=== PATIENT | female | born 1930 | race Caucasian/White ===

== ENCOUNTER 2016-12-04 14:48 | Inpatient (IN) | payer BC ==
[2016-12-04 15:04] VITALS: BMI 24.0
--- NOTE | 2016-12-04 15:23 | PDOC ---
History of Present Illness <Marcus Almeida - Last Filed: 12/04/16 18:46> - History of Present Illness Initial Comments: 12/04/16 15:25 The patient is a 85 year old female, with a significant past medical history of hearing loss, parkinsons disease (diagnosed a few months ago), and hypertension , who presents to the emergency department with pain to the left side of her neck, decreased appetite, nausea, diarrhea, dizziness, and chills since yesterday. The patient reports the pain and tenderness is localized to the left side of her neck and points to the area just under her ear, posteriorly. She describes the pain as a throbbing and burning sensation. She denies difficulty swallowing. She states the pain was worse yesterday, but notices her neck is swollen today. The patient reports putting her hearing aid into her left ear has been reproducing pain the past couple of days. The patient states she has had a decreased appetite and nausea for the past couple of weeks. The patient reports occasional episodes of diarrhea and loose stool. She reports intermittent episodes of dizziness, weakness and feeling "hot and cold". The patient's daughter reports noticing her mothers tremors have been more frequent lately. She also reports a 15 lbs weight loss in the past few months. The patient's daughter reports she was unsure what to expect for side effects when her mother started the new medication for her Parkinson's disease a few months ago, however, is now concerned and would like the patient evaluated. She denies chest pain, shortness of breath, headache. She denies fever, vomit, and constipation. She denies dysuria, frequency, urgency and hematuria. Allergies: NKDA Social history: denies toxic habits PCP - Dr. Thompson <Christen Eduardo - Last Filed: 12/04/16 19:04> - General Chief Complaint: Pain Stated Complaint: SWOLLEN NECK NODES Time Seen by Provider: 12/04/16 14:51 Past History - Past Medical History HTN: Yes Other medical history: PARKINSON'S - Psycho/Social/Smoking Cessation Hx Anxiety: No Suicidal Ideation: No Smoking History: Never smoked Hx Alcohol Use: No Drug/Substance Use Hx: No Substance Use Type: None <Marcus Almeida - Last Filed: 12/04/16 18:46> <Christen Eduardo - Last Filed: 12/04/16 19:04> - Past Medical History Allergies/Adverse Reactions: Allergies Allergy/AdvReac Type Severity Reaction Status Date / Time No Known Allergies Allergy Verified 12/04/16 14:54 Home Medications: Ambulatory Orders Amlodipine Besylate [Norvasc -] 5 mg PO BID 02/16/14 Hydrochlorothiazide [Hctz -] 12.5 mg PO DAILY 02/16/14 Carbidopa/Levodopa 25/100 [Sinemet 25/100 -] 1 each PO TID 12/04/16 Donepezil HCl [Aricept -] 5 mg PO DAILY 12/04/16 Review of Systems - Review of Systems Able to Perform ROS?: Yes Comments:: 12/04/16 15:25 CONSTITUTIONAL: Absent: fever, chills, diaphoresis, generalized weakness, malaise, loss of appetite HEENT: (+) Left ear pain. Absent: rhinorrhea, nasal congestion, throat pain, throat swelling, difficulty swallowing, mouth swelling, eye pain, visual Changes CARDIOVASCULAR: Absent: chest pain, syncope, palpitations, irregular heart rate, lightheadedness , peripheral edema RESPIRATORY: Absent: cough, shortness of breath, dyspnea with exertion, orthopnea, wheezing, stridor, hemoptysis GASTROINTESTINAL: Absent: abdominal pain, abdominal distension, nausea, vomiting, diarrhea, constipation, melena, hematochezia GENITOURINARY: Absent: dysuria, frequency, urgency, hesitancy, hematuria, flank pain, genital pain MUSCULOSKELETAL: (+) Left sided neck pain and swelling. Absent: myalgia, arthralgia, joint swelling SKIN: Absent: rash, itching, pallor HEMATOLOGIC/IMMUNOLOGIC: Absent: easy bleeding, easy bruising, lymphadenopathy, frequent infections ENDOCRINE: Absent: unexplained weight gain, unexplained weight loss, heat intolerance, cold intolerance NEUROLOGIC: Absent: headache, focal weakness or paresthesias, dizziness, unsteady gait, seizure, mental status changes, bladder or bowel incontinence PSYCHIATRIC: Absent: anxiety, depression, suicidal or homicidal ideation, hallucinations. <Christen Eduardo - Last Filed: 12/04/16 19:04> *Physical Exam - Vital Signs Last Vital Signs Temp Pulse Resp BP Pulse Ox 97.4 F L 90 16 147/76 99 12/04/16 14:49 12/04/16 14:49 12/04/16 14:49 12/04/16 14:49 12/04/16 14:49 <Marcus Almeida - Last Filed: 12/04/16 18:46> - Vital Signs Last Vital Signs Temp Pulse Resp BP Pulse Ox 97.4 F L 90 16 147/76 99 12/04/16 14:49 12/04/16 14:49 12/04/16 14:49 12/04/16 14:49 12/04/16 14:49 - Physical Exam Comments: 12/04/16 15:25 GENERAL: Well developed, well nourished. Awake and alert. No acute distress. HEENT: Normocephalic, atraumatic. PERRLA, EOMI. No conjunctival pallor. Sclera are non- icteric. Moist mucous membranes. Oropharynx is clear. NECK: (+) bilateral neck fullness with minimal tenderness (left greater than right). Supple. Full ROM. No JVD. Carotid pulses 2+ and symmetric, without bruits. No thyromegaly. No lymphadenopathy. CARDIOVASCULAR: Regular rate and rhythm. No murmurs, rubs, or gallops. Distal pulses are 2+ and symmetric. PULMONARY: No evidence of respiratory distress. Lungs clear to auscultation bilaterally. No wheezing, rales or rhonchi. ABDOMINAL: Soft. Non-tender. Non-distended. No rebound or guarding. No organomegaly. Normoactive bowel sounds. MUSCULOSKELETAL Normal range of motion at all joints. No bony deformities or tenderness. No CVA tenderness. EXTREMITIES: No cyanosis. No clubbing. No edema. No calf tenderness. SKIN: Warm and dry. Normal capillary refill. No rashes. No jaundice. NEUROLOGICAL: Alert, awake, appropriate. Cranial nerves 2-12 intact. Normoreflexic in the upper and lower extremities. Normal speech. Toes are down-going bilaterally. Gait is normal without ataxia. PSYCHIATRIC: Cooperative. Good eye contact. Appropriate mood and affect. <Christen Eduardo - Last Filed: 12/04/16 19:04> ED Treatment Course - LABORATORY CBC & Chemistry Diagram: 12/04/16 15:25 12/04/16 15:25 <Marucs Almeida - Last Filed: 12/04/16 18:46> - LABORATORY CBC & Chemistry Diagram: 12/04/16 15:25 12/04/16 15:25 - RADIOLOGY Radiograph Interpretation: 12/04/16 18:16 EXAM: CT neck with contrastwas read by Belkis Lacey MD at 18:04 EST FINDINGS: 1. There is increased size and heterogeneous increased enhancement of the left parotid gland consistent with the appearance of left parotiditis. There is surrounding inflammatory change in the adjacent facial and cervical soft tissues. There is no definite evidence of an obstructing stone. 2. There are mildly prominent left cervical and facial lymph nodes. None demonstrate necrosis. 3. There is no evidence of abscess. 4. There is normal enhancement of the major cervical vascular structures. 5. 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 No evidence of compromise of the airway. 6. Cervical spondylosis with multiple level degenerative disc and endplate change, mild anterior subluxation of C4 on C5 and multilevel canal and foraminal stenosis. <Christen Eduardo - Last Filed: 12/04/16 19:04> Medical Decision Making - Medical Decision Making 12/04/16 15:23 The patient is well-appearing and in no acute distress Airway is intact Will obtain labs 12/04/16 15:49 CBC noted with leukocytosis and left shift Chemistries and CRP/ESR pending 12/04/16 16:22 Labs called According to the lab, creatinine 0.9 The patient is proceeding to CAT scan 12/04/16 17:00 CRP noted, mildly high CT was completed, results pending 12/04/16 17:25 Airway remains intact ESR noted, within normal limits CT pending 12/04/16 17:44 CT is pending I've called imaging on-call to expedite her breathing 12/04/16 18:00 CT report noted: There is evidence of left parotitis Given the rapid clinical progression, will treat inpatient with vancomycin and clindamycin Will consult ENT Clinical impression: Acute parotitis PCP called 12/04/16 18:46 Awaiting call back from PCP Service related that they "are not sure if the PCP is available" Will admit to Service Case discussed in detail with admitting provider including history, physical exam and ancillary studies. Admitting physician has assumed care for the patient, will follow all pending diagnostics and will complete the evaluation and treatment. A portion of this note was documented by scribe services under my direction. I have reviewed the details of the note, within reason, and agree with the documentation with the following case summary and management plan written by me. <Marcus Almeida - Last Filed: 12/04/16 18:46> - Medical Decision Making 12/04/16 18:11 Dr. Baugh was paged at his office at 18:11 requesting a call back for a doctor to doctor consult. I have been informed by the assistant corporate secretary that a covering physician will be returning our call shortly. 12/04/16 19:02 Dr. Chow was called at 19:03 and the patient's case was discussed. He agrees to see the patient tomorrow for routine consult. <Christen Eduardo - Last Filed: 12/04/16 19:04> *DC/Admit/Observation/Transfer - Discharge Dispostion Admit: Yes <Marcus Almeida - Last Filed: 12/04/16 18:46> - Attestations Scribe Attestion: 12/04/16 15:26 Documentation prepared by Christen Eduardo, acting as pediatrician/medical doctor for Marcus Almeida MD <Christen Eduardo - Last Filed: 12/04/16 19:04> Diagnosis at time of Disposition: Acute parotitis - Discharge Dispostion Condition at time of disposition: Good - Referrals
[2016-12-04 15:28] LABS: URINE APPEARANCE Clear; URINE BILIRUBIN 1+ (NEGATIVE); URINE BLOOD 1+ (NEGATIVE); URINE COLOR AMBER; URINE GLUCOSE (UA) Negative (NEGATIVE); URINE KETONE 1+ (NEGATIVE); URINE LEUK ESTERASE Negative (NEGATIVE); URINE NITRITE Negative (NEGATIVE); URINE PROTEIN 1+ (NEGATIVE); URINE UROBILINOGEN 1.0 E.U/dl (0.2-1.0)
[2016-12-04] MEDS ORDERED: SODIUM CHLORIDE 1,000 ML IV SCH (15:30)
[2016-12-04 15:42] LABS: BASOPHIL 0.4 % (0-2.0); MCH 29.4 pg (25.7-33.7); MCHC 32.7 g/dl (32.0-36.0); MEAN CELL VOLUME 89.7 fl (80-96); NEUTROPHILS 86.3 % (42.8-82.8); PLATELET COUNT 211 K/MM3 (134-434); RDW 12.4 % (11.6-15.6); WHITE BLOOD COUNT 13.9 K/mm3 (4.0-10.0)
[2016-12-04 15:52] LABS: URINE WBC 0-1 (3-5)
[2016-12-04] MEDS ORDERED: ONDANSETRON 4 MG/2 ML VIAL IVPB ONE (16:09)
[2016-12-04] MEDS ORDERED: ONDANSETRON 4 MG/2 ML VIAL ONE (16:10)
[2016-12-04 16:18] LABS: INR 1.06 (0.82-1.09); PROTHROMBIN TIME (PATIENT) 11.6 SEC (10.2-13.0)
[2016-12-04 16:20] LABS: ALBUMIN 4.3 g/dl (3.5-5.0); ALK PHOS 200 U/L (32-92); ANION GAP 8 (8-16); BILIRUBIN,TOTAL 0.7 mg/dl (0.2-1.0); CALCIUM 9.4 mg/dl (8.4-10.2); CO2 32 mmol/L (22-28); CREATININE 0.7 mg/dl (0.6-1.3); GLUCOSE,RANDOM 140 mg/dl (74-106); SGOT/AST 27 U/L (10-42); SGPT/ALT 13 U/L (10-40); TOT PROT 7.1 g/dl (6.4-8.3)
[2016-12-04] MEDS ORDERED: CLINDAMYCIN IVPB 900 MG in DEXTROSE 5%-WATER - 50 ML IVPB ONE (18:10)
[2016-12-04] MEDS ORDERED: VANCOMYCIN 1,000 MG in DEXTROSE 5%-WATER - 250 ML IVPB ONE (18:10)
[2016-12-04] MEDS ORDERED: CLINDAMYCIN PHOSPHATE 600 MG/4 ML VIAL ONE (18:12)
[2016-12-04] MEDS ORDERED: VANCOMYCIN 1,000 MG VIAL (RESTRICTED TO ID ONLY) ONE (18:13)
[2016-12-04] MEDS ORDERED: CLINDAMYCIN PHOSPHATE 300 MG/2 ML VIAL ONE (18:13)
[2016-12-04] MEDS ORDERED: DEXTROSE 5%-0.45% SALINE 1,000 ML IV SCH (18:15)
[2016-12-04 19:06] LABS: THYROID STIMULATING HORMONE 0.28 uIU/ml (0.358-3.74)
[2016-12-04] MEDS ORDERED: CIPROFLOXACIN 400 MG/D5W 200 ML IVPB ONE (19:15)
[2016-12-04] MEDS ORDERED: METRONIDAZOLE 500 MG PREMIXED 100 ML IVPB ONE (19:17)
[2016-12-04] MEDS ORDERED: ONDANSETRON 4 MG/2 ML VIAL IVPB PRN (20:04)
[2016-12-04] MEDS ORDERED: ACETAMINOPHEN 325 MG TABLET (FP) PO PRN (20:04)
[2016-12-04] MEDS ORDERED: diphenhydrAMINE HCL 25 MG CAPSULE (FP) PO PRN (20:12)
[2016-12-04] MEDS: DEXTROSE 5%-0.45% SALINE 1,000 ML IV SCH (22:03)
[2016-12-04] MEDS: amLODIPine BESYLATE 5 MG TABLET (FP) PO SCH (22:48)
[2016-12-04] MEDS: CARBIDOPA/LEVODOPA 25/100 TABLET (FP) PO SCH (22:48)
[2016-12-05] MEDS: METRONIDAZOLE 500 MG PREMIXED 100 ML IVPB SCH ×2 (02:03→09:15)
[2016-12-05] MEDS: CARBIDOPA/LEVODOPA 25/100 TABLET (FP) PO SCH ×3 (06:57→22:28)
[2016-12-05 07:57] LABS: BASOPHIL 0.7 % (0-2.0); EOSINOPHIL 1.8 % (0-4.5); MCH 29.9 pg (25.7-33.7); MCHC 32.7 g/dl (32.0-36.0); MEAN CELL VOLUME 91.5 fl (80-96); MEAN PLT VOLUME 9.8 fl (7.5-11.1); NEUTROPHILS 54.2 % (42.8-82.8); PLATELET COUNT 177 K/MM3 (134-434); WHITE BLOOD COUNT 6.1 K/mm3 (4.0-10.0)
[2016-12-05 08:16] LABS: ALBUMIN 2.9 g/dl (3.4-5.0); ALK PHOS 165 U/L (45-117); ANION GAP 7 (8-16); BILIRUBIN,TOTAL 0.8 mg/dL (0.2-1.0); CALCIUM 8.3 mg/dL (8.5-10.1); CO2 35 mmol/L (21-32); CREATININE 0.7 mg/dL (0.55-1.02); GLUCOSE,RANDOM 91 mg/dL (74-106); SGOT/AST 12 U/L (15-37); SGPT/ALT 7 U/L (12-78); TOT PROT 5.6 g/dl (6.4-8.2)
[2016-12-05] MEDS: ENOXAPARIN NA (PORCINE) 40 MG/0.4 ML DISP.SYRIN SQ SCH (09:15)
[2016-12-05] MEDS: amLODIPine BESYLATE 5 MG TABLET (FP) PO SCH ×2 (09:15→22:00)
[2016-12-05] MEDS: LEVOFLOXACIN 500 MG IVPB 100 ML IVPB SCH (09:15)
[2016-12-05] MEDS ORDERED: DONEPEZIL HCL 5 MG TABLET (FP) PO SCH (10:00)
[2016-12-05] MEDS ORDERED: HYDROCHLOROTHIAZIDE 12.5 MG CAPSULE (FP) PO SCH (10:00)
--- NOTE | 2016-12-05 10:22 | HP ---
Admitting History and Physical - Primary Care Physician PCP: Lissa Baugh - Admission Chief Complaint: pain in neck History of Present Illness: The patient is a 85 year old female, with a significant past medical history of hearing loss, parkinsons disease (diagnosed a few months ago), and hypertension , who presented to the emergency department with pain to the left side of her neck, decreased appetite, nausea, diarrhea, dizziness, and chills since yesterday. The patient reports the pain and tenderness is localized to the left side of her neck and points to the area just under her ear, posteriorly. She describes the pain as a throbbing and burning sensation. She denies difficulty swallowing. She states the pain was worse yesterday, but notices her neck is swollen today. The patient reports putting her hearing aid into her left ear has been reproducing pain the past couple of days. The patient states she has had a decreased appetite and nausea for the past couple of weeks. The patient reports occasional episodes of diarrhea and loose stool. She reports intermittent episodes of dizziness, weakness and feeling "hot and cold". The patient's daughter reports noticing her mothers tremors have been more frequent lately. She also reports a 15 lbs weight loss in the past few months. She denies chest pain, shortness of breath, headache. She denies fever, vomit, and constipation. She denies dysuria, frequency, urgency and hematuria. work up revealed Prostatitis-- pt started on abx Pt seen / examined today. Chart reviewed. feels much better. Wants to go home Niece at bedside. denies cp/ sob/ abd pain. no headche/ dizziness denies u/b trouble. PCP - Dr. Thompson History Source: Patient, Family Member Limitations to Obtaining History: No Limitations - Past Medical History [employer]: Yes: Parkinson's Cardiovascular: Yes: HTN ...: No - Smoking History Smoking history: Never smoked - Alcohol/Substance Use Hx Alcohol Use: No Home Medications - Allergies Allergies/Adverse Reactions: Allergies Allergy/AdvReac Type Severity Reaction Status Date / Time No Known Allergies Allergy Verified 12/04/16 14:54 - Home Medications Home Medications: Ambulatory Orders Amlodipine Besylate [Norvasc -] 5 mg PO BID 02/16/14 Hydrochlorothiazide [Hctz -] 12.5 mg PO DAILY 02/16/14 Carbidopa/Levodopa 25/100 [Sinemet 25/100 -] 1 each PO TID 12/04/16 Donepezil HCl [Aricept -] 5 mg PO DAILY 12/04/16 Review of Systems Unable to obtain ROS, reason: see hpi Physical Examination Vital Signs: Vital Signs Temperature 98.0 F 12/05/16 06:30 Pulse Rate 53 L 12/05/16 06:30 Respiratory Rate 18 12/05/16 06:30 Blood Pressure 94/54 12/05/16 06:30 O2 Sat by Pulse Oximetry (%) 95 12/05/16 06:30 Constitutional: Yes: No Distress, Calm Eyes: Yes: Conjunctiva Clear Neck: Yes: Supple, Other (tenderness + left side of neck-- below ear-- pt reports much better.) Respiratory: Yes: CTA Bilaterally Gastrointestinal: Yes: Soft Edema: No Neurological: Yes: Alert Labs: CBC, BMP 12/05/16 06:00 12/05/16 06:00 Imaging - Results Cat Scan: Report Reviewed Problem List - Problems (1) Acute parotitis Code(s): K11.21 - ACUTE SIALOADENITIS (2) HTN (hypertension) Code(s): I10 - ESSENTIAL (PRIMARY) HYPERTENSION (3) Parkinsonism Code(s): G20 - PARKINSON'S DISEASE Qualifiers: Parkinsonism type: Parkinson's disease Qualified Code(s): G20 - Parkinson's disease Assessment/Plan Overall better Continue abx warm soaks ent to follow. hold aricept due to interaction with abx pt to follow as out pt with pmd for weight loss concerns Continue mild hydration as bp low hold hctz. If better - will consider d/c in am on po meds. discussed with nursing staff. discussed with niece who is at bedside.
--- NOTE | 2016-12-05 14:49 | EKG ---
Test Reason : Blood Pressure : / mmHG Vent. Rate : 075 BPM Atrial Rate : 075 BPM P-R Int : 198 ms QRS Dur : 098 ms QT Int : 438 ms P-R-T Axes : 055 -38 048 degrees QTc Int : 489 ms NORMAL SINUS RHYTHM POSSIBLE LEFT ATRIAL ENLARGEMENT LEFT AXIS DEVIATION POSSIBLE ANTERIOR INFARCT , AGE UNDETERMINED ABNORMAL ECG NO PREVIOUS ECGS AVAILABLE Confirmed by VIRA MAGALLON MD ([id number]) on 12/05/2016 2:48:37 PM Referred By: LACEY Confirmed By:VIRA MAGALLON MD
[2016-12-05] MEDS: DEXTROSE 5%-0.45% SALINE 1,000 ML IV SCH (23:28)
[2016-12-06] MEDS: METRONIDAZOLE 500 MG PREMIXED 100 ML IVPB SCH ×2 (01:06→09:57)
[2016-12-06] MEDS: CARBIDOPA/LEVODOPA 25/100 TABLET (FP) PO SCH (05:24)
[2016-12-06 05:36] VITALS: BP 110/53; PULSE 73; TEMP 98.8
[2016-12-06] MEDS: LEVOFLOXACIN 500 MG IVPB 100 ML IVPB SCH (08:38)
[2016-12-06] MEDS: ENOXAPARIN NA (PORCINE) 40 MG/0.4 ML DISP.SYRIN SQ SCH (09:57)
[2016-12-06] MEDS: amLODIPine BESYLATE 5 MG TABLET (FP) PO SCH (10:00)
--- NOTE | 2016-12-06 10:32 | DS ---
Physical Examination Vital Signs: Vital Signs Temperature 98.8 F 12/06/16 05:34 Pulse Rate 73 12/06/16 05:34 Respiratory Rate 18 12/06/16 05:34 Blood Pressure 110/53 12/06/16 05:34 O2 Sat by Pulse Oximetry (%) 95 12/06/16 07:47 Labs: CBC, BMP 12/05/16 06:00 12/05/16 06:00 <Frankie Bello - Last Filed: 12/06/16 10:32> Vital Signs: Vital Signs Temperature 98.8 F 12/06/16 05:34 Pulse Rate 73 12/06/16 05:34 Respiratory Rate 18 12/06/16 05:34 Blood Pressure 110/53 12/06/16 05:34 O2 Sat by Pulse Oximetry (%) 95 12/06/16 07:47 Findings/Remarks: The patient feels well. No complaints. Afebrile. Eating well. Neck swelling decreasing significantly. Denies pain. Wants to go home. Constitutional: Yes: No Distress Eyes: Yes: Conjunctiva Clear Neck: Yes: Supple Cardiovascular: Yes: Regular Rate and Rhythm Respiratory: Yes: CTA Bilaterally Gastrointestinal: Yes: Soft Edema: No Labs: CBC, BMP 12/05/16 06:00 12/05/16 06:00 <Melissa Mora - Last Filed: 12/06/16 10:35> Discharge Summary Reason For Visit: LEFT PAROTITIS Current Active Problems Acute parotitis (Acute) HTN (hypertension) (Acute) Parkinsonism (Acute) - Home Medications Comprehensive Discharge Medication List: Ambulatory Orders Carbidopa/Levodopa 25/100 [Sinemet 25/100 -] 1 each PO TID 12/04/16 Donepezil HCl [Aricept -] 5 mg PO DAILY 12/04/16 Acetaminophen [Tylenol .Regular Strength -] 650 mg PO Q4H PRN #0 tablet Levofloxacin [Levaquin] 500 mg PO DAILY #5 tablet 12/06/16 <Frankie Bello - Last Filed: 12/06/16 10:32> Current Active Problems Acute parotitis (Acute) HTN (hypertension) (Acute) Parkinsonism (Acute) Hospital Course: Admitted for acute parotitis. Treated with IV antibiotics. Much better. Will discharge on PO antibiotics. Antibiotics were sent to her pharmacy. Will hold BP medications especially that her BP is running on the low side. Patient is to follow up with her PMD this week. Patient in agreement. Plan discussed with nursing staff also. - Home Medications Comprehensive Discharge Medication List: Ambulatory Orders Carbidopa/Levodopa 25/100 [Sinemet 25/100 -] 1 each PO TID 12/04/16 Donepezil HCl [Aricept -] 5 mg PO DAILY 12/04/16 Acetaminophen [Tylenol .Regular Strength -] 650 mg PO Q4H PRN #0 tablet Levofloxacin [Levaquin] 500 mg PO DAILY #5 tablet 12/06/16 <Melissa Mora - Last Filed: 12/06/16 10:35> Condition: Good - Instructions Referrals: Lissa Baugh MD [Primary Care Provider] -
== END 2016-12-06 11:43 | disposition home or self-care (01) | DRG 156 ==
LOC: FER 14:48 → FM/S 18:54
PROVIDERS: ADMIT Internal Medicine; ATTEND Internal Medicine
DX: K11.21 Acute sialoadenitis (principal); G20 Parkinson's disease; H91.8X9 Other specified hearing loss, unspecified ear; I10 Essential (primary) hypertension
CPT/HCPCS: 36415; 70491-TC; 80053; 81003; 81015; 84443; 85025; 85610; 85651; 86140; 87040; 93005; 99283-25

== ENCOUNTER 2017-11-16 14:59 | Emergency (ER) | payer BC, OTHER ==
--- NOTE | 2017-11-16 15:05 | PDOC ---
History of Present Illness - General History Source: Patient, Family <Christen Eduardo - Last Filed: 11/16/17 18:11> <Chema Valles - Last Filed: 11/16/17 18:17> - General Chief Complaint: Syncope/Near Syncope Stated Complaint: passed out Time Seen by Provider: 11/16/17 15:03 - History of Present Illness Initial Comments: 11/16/17 16:14 The patient is a 86 year old female, with a significant past medical history of hypertension,hearing loss, parkinsons disease, gait instability, numerous falls , and significant resting tremor, who presents to the emergency department with daughter for evaluation s/p witness fall today. As per patients daughter, the patient urinated and while getting up felt lightheaded and fell onto her left side striking the left side of her face, left shoulder, and left ribs. She denies LOC. The patient reports mild pain to her neck. The daughter denies any changes in mental status. The patient had an appointment with her neurologist within the last 2 weeks. She denies chest pain, shortness of breath, headache. She denies fever, nausea , vomit, diarrhea and constipation. She denies dysuria, frequency, urgency and hematuria. Allergies: NKDA Social history: denies toxic habits PCP - Dr. Thompson Neurology: Dr. Dorado (Christen Eduardo) Past History <Christen Eduardo - Last Filed: 11/16/17 18:11> - Past Medical History Anemia: No Asthma: No Cancer: No Cardiac Disorders: No CVA: No COPD: No CHF: No Dementia: Yes Diabetes: No GI Disorders: No Disorders: No HTN: Yes Hypercholesterolemia: No Liver Disease: No Seizures: No Thyroid Disease: No - Suicide/Smoking/Psychosocial Hx Smoking History: Never smoked Hx Alcohol Use: No Drug/Substance Use Hx: No Substance Use Type: None <Chema Valles - Last Filed: 11/16/17 18:17> - Past Medical History Allergies/Adverse Reactions: Allergies Allergy/AdvReac Type Severity Reaction Status Date / Time No Known Allergies Allergy Verified 11/16/17 15:00 Home Medications: Ambulatory Orders Donepezil HCl [Aricept -] 10 mg PO DAILY 12/04/16 Meclizine HCl 12.5 - 25 mg PO TID PRN #20 tablet 11/16/17 Ondansetron [Zofran Odt -] 4 mg SL TID PRN #20 od.tablet 11/16/17 Cardiac Specific PMH - Complaint Specific PMHX Pacemaker: No <Chema Valles - Last Filed: 11/16/17 18:17> Review of Systems - Review of Systems Able to Perform ROS?: Yes <Christen Eduardo - Last Filed: 11/16/17 18:11> <Chema Valles - Last Filed: 11/16/17 18:17> - Review of Systems Comments:: 11/16/17 16:15 CONSTITUTIONAL: (+) s/p witnessed fall. Absent: fever, chills, diaphoresis, generalized weakness , malaise, loss of appetite HEENT: Absent: rhinorrhea, nasal congestion, throat pain, throat swelling, difficulty swallowing, mouth swelling, ear pain, eye pain, visual Changes CARDIOVASCULAR: Absent: chest pain, syncope, palpitations, irregular heart rate, lightheadedness , peripheral edema RESPIRATORY: Absent: cough, shortness of breath, dyspnea with exertion, orthopnea, wheezing, stridor, hemoptysis GASTROINTESTINAL: Absent: abdominal pain, abdominal distension, nausea, vomiting, diarrhea, constipation, melena, hematochezia GENITOURINARY: Absent: dysuria, frequency, urgency, hesitancy, hematuria, flank pain, genital pain MUSCULOSKELETAL: (+) neck pain. Absent: arthralgia, joint swelling SKIN: Absent: rash, itching, pallor HEMATOLOGIC/IMMUNOLOGIC: Absent: easy bleeding, easy bruising, lymphadenopathy, frequent infections ENDOCRINE: Absent: unexplained weight gain, unexplained weight loss, heat intolerance, cold intolerance NEUROLOGIC: Absent: headache, focal weakness or paresthesia, dizziness, seizure, mental status changes, bladder or bowel incontinence PSYCHIATRIC: Absent: anxiety, depression, suicidal or homicidal ideation, hallucinations (Christen Eduardo) - Vital Signs Last Vital Signs Temp Pulse Resp BP Pulse Ox 98.2 F 59 L 18 149/85 99 11/16/17 15:00 11/16/17 15:00 11/16/17 15:00 11/16/17 15:00 11/16/17 15:00 ED Treatment Course - LABORATORY CBC & Chemistry Diagram: 11/16/17 15:23 11/16/17 15:23 <AleshaChristen - Last Filed: 11/16/17 18:11> - LABORATORY CBC & Chemistry Diagram: 11/16/17 15:23 11/16/17 15:23 <Chema Valles - Last Filed: 11/16/17 18:17> - ADDITIONAL ORDERS Additional order review: Laboratory Results 11/16/17 11/16/17 11/16/17 15:23 15:23 15:23 PT with INR 11.9 INR 1.06 Sodium 137 Potassium 3.5 Chloride 97 L Carbon Dioxide 30 H Anion Gap 10 BUN 28 H D Creatinine 0.7 Creat Clearance w eGFR > 60 Random Glucose Calcium 9.0 Total Bilirubin 0.3 D AST 21 D ALT 18 D Alkaline Phosphatase 189 H Creatine Kinase 49 Troponin I < 0.03 L Total Protein 6.7 Albumin 4.0 Urine Color [place] Urine Appearance Clear Urine pH 5.0 Ur Specific [place] >= 1.030 H Urine Protein 1+ H Urine Glucose (UA) Negative Urine Ketones Negative Urine Blood 1+ H Urine Nitrite Negative Urine Bilirubin Negative Urine Urobilinogen 0.2 Ur Leukocyte Esterase Negative Urine RBC 5-10 Urine WBC 2-5 Ur Epithelial Cells Few Calcium Oxalate Crystal Many Urine Bacteria Few Urine Mucus Moderate Urine Yeast Many 11/16/17 15:23 RBC 5.25 H MCV 91.6 MCHC 32.9 RDW 12.4 MPV 9.6 Neutrophils % 86.9 H Lymphocytes % 9.1 D Monocytes % 3.8 Eosinophils % 0.2 D - RADIOLOGY Radiology Studies Ordered: Category Date Time Status CERVICAL SPINE CT W/O CONTR [CT] Stat CT Scan 11/16/17 15:[address] WITHOUT CONTRAST [CT] Stat CT Scan 11/16/17 15:30 Completed Radiograph Interpretation: EXAM#: TYPE/EXAM: RESULT: [id number] CT/CERVICAL SPINE CT W/O CONTR EXAM: CT cervical spine without contrast. INDICATION: Head trauma. TECHNIQUE: Axial noncontrast head CT with coronal and sagittal reformations. COMPARISON: 12/04/2016 CT neck. FINDINGS: There is osseous demineralization with no evidence of acute fracture. The vertebral body heights are maintained. Grade 1 anterolisthesis of C4 on C5 and C5 on C6 appears similar to prior. There is mild anterolisthesis of C3 on C4 measuring approximately 2-3 mm and trace anterolisthesis of C7 on T1 measuring 1-2, which are more conspicuous since the prior CT, however, this could be secondary to differences in technique. There is reversal the cervical curvature with kyphotic angulation centered at C6. There is cervical spondylosis with disc space narrowing and posterior facet hypertrophy at all levels. Disc space narrowing is most severe at C3-C4 and C5- C6. There is multilevel uncovertebral hypertrophy. There is degenerative osseous fusion of the left C5-C6 posterior facet. Mild uncovering of the C4-C5 posterior facets a similar to the prior AP. There is no pathologic prevertebral soft tissue swelling/thickening. There is at least mild canal stenosis at C3-C4 and C4-C5. There is severe narrowing of the C3-C4 neural foramina, and likely moderate narrowing of the left C4-C5 neural foramen. IMPRESSION: No evidence of acute fracture in the cervical spine. Chronic, degenerative grade 1 anterolisthesis of C4 on C5 and C5 on C6 are unchanged from 12/04/2016 CT. Very mild anterolisthesis of C3 on C4 and C7 on T1 are more apparent since CT neck, however, this may be secondary to differences in technique. Cervical spondylosis with canal and neural foraminal stenosis as described above. Reported By: Radha Landers DO 11/16/17 1642 EXAM#: TYPE/EXAM: RESULT: [id number] CT/HEAD CT WITHOUT CONTRAST Cranial CT without contrast Clinical information: head trauma There is no CT evidence of intracranial injury or calvarial fracture. Mild to moderate periventricular and subinsular microvascular ischemic gliosis is noted. No discrete infarct is identified within the limitations of CT. There is no extra-axial fluid collection. No gross mass lesion is seen. Involutional changes are noted with mild ventricular dilatation. The calvarium demonstrates diffuse demineralization. Impression: No CT evidence of acute intracranial pathology. Reported By: Sawyer Uriostegui MD 11/16/17 4502 (Christen Eduardo) Medical Decision Making <Christen Eduardo - Last Filed: 11/16/17 18:11> <Chema Valles - Last Filed: 11/16/17 18:17> - Medical Decision Making 11/16/17 16:02 EKG: Normal sinus rhythm 68/m borderline first-degree AV block. Left axis deviation. Borderline LVH. Baseline artifact is present but there are probably no ST-T wave changes. No interval change from prior EKG 12/04/2016. 11/16/17 17:00 Physical exam: Patient is alert cooperative in no acute distress. There is mild resting tremor. Afebrile, vital signs stable Numerous old contusions and ecchymoses of the face. No deformity or swelling of the facial bones. No abrasions or lacerations. No new injuries. Head and scalp atraumatic. PERRLA, fundi benign with sharp disc margins and good central venous pulsations, ENT clear There is mild tenderness over the cervical spine, but no deformity. There is mild pain with rotation, flexion, and extension. Chest clear. No rib cage or chest wall deformity or tenderness CV regular without murmur rub or gallop Abdomen benign Extremities no obvious deformities, good range of motion without pain of the shoulders and hips. No visible or palpable signs of trauma. Neurological C2 to 12 intact. Generalized weakness but no focal sensory or motor deficits. Gait stable. Mild resting tremor. Impression: Woman with worsening Parkinson's, followed by neurologist Dr. Dorado, slowly deteriorating, frequent falls due to gait instability, no apparent serious injury of present Plan: Head and neck CT, labs, and further treatment depending on results. Neurological follow-up. (Chema Valles) *DC/Admit/Observation/Transfer <Christen Eduardo - Last Filed: 11/16/17 18:11> - Discharge Dispostion Admit: No <Chema Valles - Last Filed: 11/16/17 18:17> Diagnosis at time of Disposition: Vasovagal near syncope - Discharge Dispostion Disposition: HOME Condition at time of disposition: Improved - Prescriptions Prescriptions: Meclizine HCl 12.5 - 25 mg PO TID PRN #20 tablet PRN Reason: Vertigo Ondansetron [Zofran Odt -] 4 mg SL TID PRN #20 od.tablet PRN Reason: Nausea - Referrals Referrals: Kareem Dorado MD [Staff Physician] - 1 week - Patient Instructions Printed Discharge Instructions: DI for Syncope in Adults (Fainting) Additional Instructions: Try to observe closely after bathroom visits, because this is when people usually faint. Assistance arising from the toilet may be beneficial Trial of medication as discussed If symptoms worsen or further symptoms develop, return to ER, otherwise see your neurologist in 1 week for further evaluation and treatment. Hold off on diuretic pills temporarily. - Post Discharge Activity - Attestations Scribe Attestion: 11/16/17 16:17 Documentation prepared by Christen Eduardo, acting as medical engineer for Chema Brice MD (Christen Eduardo)
[2017-11-16 15:25] VITALS: BP 149/85; PULSE 59; TEMP 98.2; BMI 23.9
[2017-11-16 15:42] LABS: EOS % 0.2 % (0-4.5); MCH 30.1 pg (25.7-33.7); MCHC 32.9 g/dl (32.0-36.0); MEAN CELL VOLUME 91.6 fl (80-96); MEAN PLT VOLUME 9.6 fl (7.5-11.1); NEUT % 86.9 % (42.8-82.8); PLATELET COUNT 228 K/MM3 (134-434); RDW 12.4 % (11.6-15.6); WHITE BLOOD COUNT 9.2 K/mm3 (4.0-10.8)
[2017-11-16 15:58] LABS: INR 1.06 (0.82-1.09); PROTHROMBIN TIME (PATIENT) 11.9 SEC (10.2-13.0)
[2017-11-16 17:29] LABS: ALK PHOS 189 U/L (32-92); ANION GAP 10 (8-16); BILIRUBIN,TOTAL 0.3 mg/dl (0.2-1.0); CO2 30 mmol/L (22-28); CPK 49 IU/L (26-192); CREATININE 0.7 mg/dl (0.6-1.3); SGOT/AST 21 U/L (10-42); SGPT/ALT 18 U/L (10-40); TOT PROT 6.7 g/dl (6.4-8.3)
[2017-11-16 17:40] LABS: TROPONIN I (DFP) < 0.03 ng/ml (0.03-0.50); URINE BILIRUBIN Negative (NEGATIVE); URINE GLUCOSE (UA) Negative (NEGATIVE); URINE KETONE Negative (NEGATIVE); URINE LEUK ESTERASE Negative (NEGATIVE); URINE NITRITE Negative (NEGATIVE); URINE UROBILINOGEN 0.2 (0.2-1.0)
[2017-11-16 17:42] LABS: URINE APPEARANCE CLEAR; URINE BLOOD 1+ (NEGATIVE); URINE COLOR AMBER; URINE PROTEIN 1+ (NEGATIVE)
[2017-11-16 18:02] LABS: CALCIUM OXALATE CRYSTALS MANY /hpf (NONE SEEN); YEAST MANY
[2017-11-16 18:03] LABS: URINE BACTERIA FEW /hpf (NEGATIVE); URINE MUCUS MODERATE
[2017-11-16 19:17] LABS: GLUCOSE,RANDOM 181 mg/dl (74-106)
--- NOTE | 2017-11-17 09:32 | EKG ---
Test Reason : Blood Pressure : / mmHG Vent. Rate : 068 BPM Atrial Rate : 068 BPM P-R Int : 212 ms QRS Dur : 102 ms QT Int : 450 ms P-R-T Axes : 054 -42 023 degrees QTc Int : 478 ms POOR DATA QUALITY, INTERPRETATION MAY BE ADVERSELY AFFECTED SINUS RHYTHM WITH 1ST DEGREE A-V BLOCK PREMATURE VENTRICULAR COMPLEXES POSSIBLE LEFT ATRIAL ENLARGEMENT LEFT AXIS DEVIATION LEFT VENTRICULAR HYPERTROPHY NONSPECIFIC ST AND T WAVE ABNORMALITY Delayed R wave progression ABNORMAL ECG WHEN COMPARED WITH ECG OF 04-DEC-2016 18:33, PVC is now present Confirmed by ELZBIETA SARMIENTO MD ([id number] on 11/17/2017 9:31:46 AM Referred By: MD LERMA Confirmed By:ELZBIETA SARMIENTO MD
== END 2017-11-16 18:25 | disposition home or self-care (01) ==
LOC: FER 14:59
DX: R55 Syncope and collapse (principal); I10 Essential (primary) hypertension; G20 Parkinson's disease; R26.2 Difficulty in walking, not elsewhere classified; H91.90 Unspecified hearing loss, unspecified ear; F03.90 Unspecified dementia, unspecified severity, without behavioral disturbance, psychotic disturbance, mood disturbance, and anxiety
CPT/HCPCS: 36415; 70450-TC; 72125-TC; 80053; 81003; 81015; 82550; 84484; 85025; 85610; 87086; 93005; 99283-25

== ENCOUNTER 2017-12-30 11:56 | Emergency (ER) | payer BC ==
[2017-12-30 12:17] VITALS: BP 140/76; PULSE 59; TEMP 97.5; BMI 25.7
--- NOTE | 2017-12-30 13:05 | PDOC ---
History of Present Illness - General Chief Complaint: Pain Stated Complaint: LEFT CHEEK SWELLING Time Seen by Provider: 12/30/17 12:12 - History of Present Illness Initial Comments: 12/30/17 13:51 Chief complaint: Pain and swelling left cheek History of present illness: Above symptoms for several days. History of parotitis of the left parotid. Review of systems reviewed and noncontributory Physical exam: Mild swelling of the left parotid. No erythema, induration, but mild tenderness. Ears clear. Throat clear. No lesions or swelling of the oropharynx Impression: Recurrent parotitis Plan: Warm compresses, antibiotics, and ENT follow-up as directed. Past History - Past Medical History Allergies/Adverse Reactions: Allergies Allergy/AdvReac Type Severity Reaction Status Date / Time No Known Allergies Allergy Verified 12/30/17 11:58 Home Medications: Ambulatory Orders Meclizine HCl 12.5 - 25 mg PO TID PRN #20 tablet 11/16/17 Ondansetron [Zofran Odt -] 4 mg SL TID PRN #20 od.tablet 11/16/17 Amlodipine Besylate/Benazepril [Lotrel 5-10 mg Capsule] 1 each PO DAILY Penicillin V Potassium [Pen Vee K -] 250 mg PO TID #21 tablet 12/30/17 Quetiapine Fumarate [Seroquel -] 0.5 tab PO HS 12/30/17 Anemia: No Asthma: No Cancer: No Cardiac Disorders: No CVA: No COPD: No CHF: No Dementia: Yes Diabetes: No GI Disorders: No Disorders: No HTN: Yes Hypercholesterolemia: No Liver Disease: No Seizures: No Thyroid Disease: No - Suicide/Smoking/Psychosocial Hx Smoking History: Never smoked Hx Alcohol Use: No Drug/Substance Use Hx: No Substance Use Type: None *Physical Exam - Vital Signs Last Vital Signs Temp Pulse Resp BP Pulse Ox 97.5 F L 59 L 18 140/76 97 12/30/17 11:57 12/30/17 11:57 12/30/17 11:57 12/30/17 11:57 12/30/17 11:57 *DC/Admit/Observation/Transfer Diagnosis at time of Disposition: Acute parotitis - Discharge Dispostion Disposition: HOME Condition at time of disposition: Stable Admit: No - Prescriptions Prescriptions: Penicillin V Potassium [Pen Vee K -] 250 mg PO TID #21 tablet - Referrals Referrals: Lissa Baugh MD [Primary Care Provider] - 1 week - Patient Instructions Printed Discharge Instructions: DI for Parotitis-Adult Additional Instructions: Warm compresses, antibiotics as directed. Recheck if symptoms worse primary physician. - Post Discharge Activity
== END 2017-12-30 13:14 | disposition home or self-care (01) ==
LOC: FER 11:56
DX: K11.22 Acute recurrent sialoadenitis (principal)
CPT/HCPCS: 99281-25

== ENCOUNTER 2018-05-11 16:39 | Emergency (ER) | payer BC ==
[2018-05-11 16:49] VITALS: BP 157/83; PULSE 72; TEMP 97.7; BMI 24.7
--- NOTE | 2018-05-11 17:07 | PDOC ---
History of Present Illness - General History Source: Patient, Family (The patient is a 87 year old female, accompanied by niece,with a significant PMH of hypertension, hearing loss, parkinson's disease, gait instability, numerous falls, significant resting tremor, dementia, who presents to the emergency department for evaluation of 2 syncopal episodes occurring approx. 23 hours ago. As per patients niece present at bedside, the patient was sitting outside with her sister yesterday around 7pm when she had a witnessed syncopal episode while sitting down in a chair lasting a few seconds. She states the patient was noted to twitch for a few seconds during the syncopal episode and was acting more confused than her baseline after the syncopal episode. She also reports that 15 minutes later the patient had another syncopal episode while sitting down in the chair similar to the first which lasted for a few seconds and where the patient appeared to be confused after. The patient denies any symptoms at that time and denies any chest pain, shortness of breath, nausea, headache, lightheadedness or dizziness. She denies any bowel or bladder incontinence. As per patients niece, she reports the patients lives next door at home with her sister who is 85 years old. ) Exam Limitations: No Limitations <Lauro Dennison - Last Filed: 05/11/18 18:01> <Samantha Rodriguez - Last Filed: 05/11/18 19:18> - General Chief Complaint: Syncope/Near Syncope Stated Complaint: SYNCOPE Time Seen by Provider: 05/11/18 16:46 Past History <Lauro Dennison - Last Filed: 05/11/18 18:01> - Past Medical History Anemia: No Asthma: No Cancer: No Cardiac Disorders: No CVA: No COPD: No CHF: No Dementia: Yes Diabetes: No GI Disorders: No Disorders: No HTN: Yes Hypercholesterolemia: No Liver Disease: No Seizures: No Thyroid Disease: No - Suicide/Smoking/Psychosocial Hx Smoking History: Never smoked Have you smoked in the past 12 months: No Hx Alcohol Use: No Drug/Substance Use Hx: No Substance Use Type: None <Samantha Rodriguez - Last Filed: 05/11/18 19:18> - Past Medical History Allergies/Adverse Reactions: Allergies Allergy/AdvReac Type Severity Reaction Status Date / Time No Known Allergies Allergy Verified 05/11/18 16:43 Home Medications: Ambulatory Orders Meclizine HCl 12.5 - 25 mg PO TID PRN #20 tablet 11/16/17 Amlodipine Besylate/Benazepril [Lotrel 5-10 mg Capsule] 1 each PO DAILY Quetiapine Fumarate [Seroquel -] 0.5 tab PO HS 12/30/17 Review of Systems - Review of Systems Constitutional: No: Chills, Fever, Weakness HEENTM: No: Blurred Vision, Double Vision, Nose Congestion, Throat Pain Respiratory: No: Cough, Shortness of Breath Cardiac (ROS): No: Chest Pain, Edema, Lightheadedness, Palpitations, Syncope ABD/GI: No: Constipated, Diarrhea, Nausea, Vomiting : No: Burning, Frequency, Flank Pain, Urgency Musculoskeletal: No: Back Pain, Neck Pain Integumentary: No: Rash, Sweating Neurological: Yes: See HPI, Other (+Syncopal episodes 2. ). No: Headache, Numbness, Tingling, Weakness, Dizziness Psychiatric: No: Anxiety, Depression Endocrine: No: Intolerance to Cold, Intolerance to Heat, Unexplained Weight Gain , Unexplained Weight Loss Hematologic/Lymphatic: No: Anemia, Blood Clots <Lauro Dennison - Last Filed: 05/11/18 18:01> *Physical Exam - Vital Signs Last Vital Signs Temp Pulse Resp BP Pulse Ox 97.7 F 72 18 157/83 100 05/11/18 16:40 05/11/18 16:40 05/11/18 16:40 05/11/18 16:40 05/11/18 16:40 - Physical Exam General Appearance: Yes: Nourished, Appropriately Dressed. No: Apparent Distress HEENT: positive: JIAN, Normal ENT Inspection, Normal Voice, Symmetrical, TMs Normal, Pharynx Normal Neck: positive: Trachea midline, Supple Respiratory/Chest: positive: Lungs Clear, Normal Breath Sounds Cardiovascular: positive: Regular Rhythm, Regular Rate, Systolic Murmur Gastrointestinal/Abdominal: positive: Normal Bowel Sounds, Soft. negative: Tender, Guarding, Rebound Lymphatic: negative: Adenopathy, Tenderness Musculoskeletal: positive: Normal Inspection. negative: CVA Tenderness Extremity: positive: Normal Inspection, Normal Range of Motion. negative: Tender Integumentary: positive: Normal Color, Dry, Warm Neurologic: positive: fiberglass insulation installer II-XII NML intact, Alert, Normal Mood/Affect, Normal Response, Motor Strength 5/5 <Lauro Dennison - Last Filed: 05/11/18 18:01> - Vital Signs Last Vital Signs Temp Pulse Resp BP Pulse Ox 97.7 F 72 18 157/83 100 05/11/18 16:40 05/11/18 16:40 05/11/18 16:40 05/11/18 16:40 05/11/18 16:40 <Samantha Rodriguez - Last Filed: 05/11/18 19:18> ED Treatment Course - LABORATORY CBC & Chemistry Diagram: 05/11/18 17:23 05/11/18 17:23 <Lauro Dennison - Last Filed: 05/11/18 18:01> - LABORATORY CBC & Chemistry Diagram: 05/11/18 17:23 05/11/18 17:23 - RADIOLOGY Radiology Studies Ordered: Category Date Time Status HEAD CT WITHOUT CONTRAST [CT] Stat CT Scan 05/11/18 17:00 Ordered <Samantha Rodriguez - Last Filed: 05/11/18 19:18> *DC/Admit/Observation/Transfer - Attestations Scribe Attestion: 05/11/18 17:57 Documentation prepared by Lauro Dennison, acting as director medical economics for Samantha Rodriguez MD. <Lauro Dennison - Last Filed: 05/11/18 18:01> - Discharge Dispostion Decision to Admit order: No <Samantha Rodriguez - Last Filed: 05/11/18 19:18> Diagnosis at time of Disposition: Near syncope - Discharge Dispostion Disposition: HOME Condition at time of disposition: Stable - Referrals Referrals: Lissa Baugh MD [Primary Care Provider] - - Patient Instructions Printed Discharge Instructions: DI for Syncope in Adults (Fainting) Additional Instructions: Fluids, avoid prolonged sun exposure - Post Discharge Activity
[2018-05-11 17:59] LABS: ALBUMIN 3.7 g/dl (3.5-5.0); ALK PHOS 204 U/L (32-92); ANION GAP 6 (8-16); BILIRUBIN,TOTAL 0.5 mg/dl (0.2-1.0); BLOOD UREA NITROGEN 26 mg/dl (7-18); CALCIUM 9.1 mg/dl (8.4-10.2); CHLORIDE 101 mmol/L (98-107); CO2 31 mmol/L (22-28); CREATININE 0.6 mg/dl (0.6-1.3); GLUCOSE,RANDOM 105 mg/dl (74-106); POTASSIUM 4.4 mmol/L (3.5-5.1); SGOT/AST 18 U/L (10-42); SGPT/ALT 14 U/L (10-40); SODIUM 138 mmol/L (136-145); TOT PROT 6.6 g/dl (6.4-8.3)
[2018-05-11 18:00] LABS: INR 1.06 (0.82-1.09); PROTHROMBIN TIME (PATIENT) 11.8 SEC (10.2-13.0)
[2018-05-11 18:01] LABS: BASO % 0.8 % (0-2.0); EOS % 6.5 % (0-4.5); HEMATOCRIT 43.4 % (32.4-45.2); HEMOGLOBIN 14.6 GM/dl (10.7-15.3); LYMPH % 24.8 % (8-40); MCHC 33.7 g/dl (32.0-36.0); MEAN CELL VOLUME 88.9 fl (80-96); MONO % 14.5 % (3.8-10.2); NEUT % 53.4 % (42.8-82.8); PLATELET COUNT 238 K/MM3 (134-434); RBC 4.88 M/mm3 (3.60-5.2); RDW 11.9 % (11.6-15.6); WHITE BLOOD COUNT 6.2 K/mm3 (4.0-10.8)
[2018-05-11 18:12] LABS: URINE APPEARANCE Clear; URINE BILIRUBIN Negative (NEGATIVE); URINE COLOR YELLOW; URINE GLUCOSE (UA) Negative (NEGATIVE); URINE KETONE Trace (NEGATIVE); URINE LEUK ESTERASE Negative (NEGATIVE); URINE NITRITE Negative (NEGATIVE); URINE PROTEIN Negative (NEGATIVE); URINE UROBILINOGEN 0.2 (0.2-1.0)
[2018-05-11 19:04] LABS: URINE WBC 0-1 (0-5)
[2018-05-11 19:05] LABS: URINE BACTERIA FEW /hpf (NEGATIVE)
--- NOTE | 2018-05-11 20:07 | PDOC ---
*Physical Exam - Vital Signs Last Vital Signs Temp Pulse Resp BP Pulse Ox 97.7 F 72 18 157/83 100 05/11/18 16:40 05/11/18 16:40 05/11/18 16:40 05/11/18 16:40 05/11/18 16:40 ED Treatment Course - LABORATORY CBC & Chemistry Diagram: 05/11/18 17:23 05/11/18 17:23 - ADDITIONAL ORDERS Additional order review: Laboratory Results 05/11/18 05/11/18 05/11/18 17:30 17:23 17:23 PT with INR INR PTT (Actin FS) Sodium 138 Potassium 4.4 D Chloride 101 Carbon Dioxide 31 H Anion Gap 6 L BUN 26 H Creatinine 0.6 Creat Clearance w eGFR > 60 Random Glucose 105 D Calcium 9.1 Total Bilirubin 0.5 D AST 18 ALT 14 D Alkaline Phosphatase 204 H Creatine Kinase 57 Troponin I < 0.03 Total Protein 6.6 Albumin 3.7 Urine Color Yellow Urine Appearance Clear Urine pH 5.0 Ur Specific [place] 1.025 Urine Protein Negative Urine Glucose (UA) Negative Urine Ketones Trace Urine Blood 2+ H Urine Nitrite Negative Urine Bilirubin Negative Urine Urobilinogen 0.2 Ur Leukocyte Esterase Negative Urine RBC 2-5 Urine WBC 0-1 Urine Bacteria Few 05/11/18 17:23 PT with INR 11.8 INR 1.06 PTT (Actin FS) 29.0 Sodium Potassium Chloride Carbon Dioxide Anion Gap BUN Creatinine Creat Clearance w eGFR Random Glucose Calcium Total Bilirubin AST ALT Alkaline Phosphatase Creatine Kinase Troponin I Total Protein Albumin Urine Color Urine Appearance Urine pH Ur Specific [place] Urine Protein Urine Glucose (UA) Urine Ketones Urine Blood Urine Nitrite Urine Bilirubin Urine Urobilinogen Ur Leukocyte Esterase Urine RBC Urine WBC Urine Bacteria 05/11/18 17:23 RBC 4.88 MCV 88.9 MCHC 33.7 RDW 11.9 MPV 9.0 Neutrophils % 53.4 Lymphocytes % 24.8 Monocytes % 14.5 H Eosinophils % 6.5 H Basophils % 0.8 Progress Note - Progress Note Progress Note: Care of this patient received from . Noncontrast head CT negative for bleed/CVA or other acute pathologic process Patient will be discharged with instructions to maintain fluid hydration, avoid prolonged sun/heat exposure. She will follow up with her PMD, within the next 5 days. She should return to the emergency room if she has any further episodes of weakness or decreased responsiveness. *DC/Admit/Observation/Transfer Diagnosis at time of Disposition: Near syncope - Discharge Dispostion Disposition: HOME Condition at time of disposition: Stable - Referrals Referrals: Lissa Baugh MD [Primary Care Provider] - - Patient Instructions Printed Discharge Instructions: DI for Syncope in Adults (Fainting) Additional Instructions: Fluids, avoid prolonged sun exposure - Post Discharge Activity
--- NOTE | 2018-05-12 08:56 | EKG ---
Test Reason : Blood Pressure : / mmHG Vent. Rate : 064 BPM Atrial Rate : 064 BPM P-R Int : 196 ms QRS Dur : 094 ms QT Int : 440 ms P-R-T Axes : 050 -22 027 degrees QTc Int : 453 ms NORMAL SINUS RHYTHM POSSIBLE LEFT ATRIAL ENLARGEMENT Confirmed by ROME ST MD ([id number]) on 05/12/2018 8:55:50 AM Referred By: DR SOLARES Confirmed By:ROME ST MD
--- NOTE | 2018-05-12 09:20 | PDOC ---
Patient Follow-up (Call Back) - Post ED Follow - Up Condition at time of discharge: Stable Disposition at time of original discharge: HOME Reason for Call Back: Radiology (Nodule to RML and ? infiltrate to L base Called and l/m for pt to call back)
--- NOTE | 2018-05-13 09:35 | PDOC ---
Patient Follow-up (Call Back) - Post ED Follow - Up Condition at time of discharge: Stable Disposition at time of original discharge: HOME Reason for Call Back: Radiology (Spoke to pt's daughter and gave her results. States pt feeling well. Will f/u with PMD)
== END 2018-05-11 20:10 | disposition home or self-care (01) ==
LOC: FER 16:39
DX: R55 Syncope and collapse (principal); I10 Essential (primary) hypertension; G20 Parkinson's disease; F02.80 Dementia in other diseases classified elsewhere, unspecified severity, without behavioral disturbance, psychotic disturbance, mood disturbance, and anxiety; G25.2 Other specified forms of tremor; R26.81 Unsteadiness on feet
CPT/HCPCS: 36415; 70450-TC; 71046-TC-FY; 80053; 81003; 81015; 82550; 84484; 85025; 85610; 85730; 87086; 93005; 99285-25